=== PATIENT | female | born 1975 | race Caucasian/White ===

== ENCOUNTER 2020-03-05 06:03 | Inpatient (IN) ==
[~2020-03-05 06:03] MED LIST: Buffered Lidocaine 1% SYRIN 1 ml INTRADERM ONE; Famotidine IV 10 MG/ML 2 ml VIAL (20 mg) IV ONE; Lactated Ringers 1000 ml BAG 1,000 ML IV SCH; NS 0.9% IV SCH; TRANEXAMIC ACID IV SCH
[2020-03-05] MEDS ORDERED: Famotidine IV 10 MG/ML 2 ml VIAL (20 mg) ONE (06:46)
[2020-03-05] MEDS ORDERED: ceFOXitin 2 GM IVPREMIX 2 GM/50 ML BAG ONE (06:46)
[2020-03-05] MEDS ORDERED: Propofol 10 MG/ML 20 ML BTL ONE (06:51)
[2020-03-05] MEDS ORDERED: Succinylcholine 200 mg VIAL 20 mg/ml 10 ml VIAL (200 mg) ONE (06:51)
[2020-03-05] MEDS ORDERED: fentaNYL 250 mcg/5 ml 50 MCG/ML 5 ml VIAL (250 MCG) ONE (06:51)
[2020-03-05] MEDS ORDERED: Midazolam 2 mg/2 ml VIAL 1 mg/ml 2 ml VIAL (2 mg) ONE (06:51)
[2020-03-05] MEDS ORDERED: Rocuronium 50 mg VIAL 10 mg/ml 5 ml VIAL (50 mg) ONE (06:51)
[2020-03-05] MEDS ORDERED: Metoclopramide 5 MG/ML VIAL (10 mg) ONE (06:52)
[2020-03-05] MEDS ORDERED: EPHEDrine (Pressors) 50 MG/ML VIAL ONE (06:52)
[2020-03-05] MEDS ORDERED: Sterile Water for Inj 10 ML ONE (06:52)
[2020-03-05] MEDS ORDERED: Ondansetron 4 mg VIAL 2 MG/ML 2 ml VIAL ONE (06:52)
[2020-03-05] MEDS ORDERED: Dexamethasone IV 4 MG/ML VIAL 1 ml VIAL ONE (06:52)
[2020-03-05] MEDS ORDERED: Lidocaine 2% PF 5 ML VIAL ONE (06:55)
[2020-03-05] MEDS ORDERED: Acetaminophen IV 1 GM/100ML 100 ML ONE (08:00)
[2020-03-05] MEDS ORDERED: diPHENhydraMINE IV 50 MG/ML 1 ml VIAL (BENADRYL) IV PRN (08:44)
[2020-03-05] MEDS ORDERED: HYDROmorphone 1 MG/1 ML SYRINGE IV PRN (08:44)
[2020-03-05] MEDS ORDERED: DiMENhydriNATE IV 50 mg/ml 1 ml VIAL IV PUSH PRN (08:44)
[2020-03-05] MEDS ORDERED: Naloxone 0.4 mg VIAL 0.4 mg/ml 1 ml VIAL IV PRN (08:44)
[2020-03-05] MEDS ORDERED: fentaNYL 100 mcg/2 ml 50 MCG/ML VIAL IV PRN (08:44)
[2020-03-05] MEDS ORDERED: Ondansetron 4 mg VIAL 2 MG/ML 2 ml VIAL IV PRN (08:44)
[2020-03-05] MEDS ORDERED: HYDROmorphone 1 MG/1 ML SYRINGE ONE (08:59)
[2020-03-05] MEDS ORDERED: Lidocaine 1% VIAL 10 MG/ML VIAL ONE (09:13)
[2020-03-05] MEDS: Lactated Ringers 1000 ml BAG 1,000 ML IV SCH ×2 (10:59→18:59)
[2020-03-05] MEDS: oxyCODONE/Acetamin 5/325 mg TAB PO PRN (13:34)
[2020-03-05] MEDS ORDERED: Metoclopramide 5 MG/ML VIAL (10 mg) IV PRN (15:12)
[2020-03-06] MEDS: oxyCODONE/Acetamin 5/325 mg TAB PO PRN ×2 (00:16→09:14)
[2020-03-06] MEDS: Lactated Ringers 1000 ml BAG 1,000 ML IV SCH (03:00)
[2020-03-06 05:11] LABS: ABS Lymphocytes 1.5 10^3/ul (1.0-4.8); ABS Monocytes 0.8 10^3/ul (0-0.8); ABS Neutrophils 10.9 10^3/ul (1.5-7.7); Eosinophil % 0.1 %; Hematocrit 32 % (35-47); Hemoglobin 11.3 g/dL (12.0-16.0); Lymphocyte % 11.5 %; Mean Corpuscular HGB Conc 35 g/dL (31-36); Mean Corpuscular Hemoglobin 34 pg (27-31); Mean Corpuscular Volume 97 fL (80-97); Mean Platelet Volume 8.7 fL (7.4-10.4); Platelet Count 231 10^3/uL (150-450); Red Blood Count 3.32 10^6 /uL (3.70-4.87); Red Cell Distribution Width 13 % (10-15); White Blood Count 13.3 10^3/uL (3.5-10.8)
[2020-03-07 12:25] VITALS: BP 112/80
[2020-03-07] MEDS: oxyCODONE/Acetamin 5/325 mg TAB PO PRN (18:07)
[2020-03-08] MEDS ORDERED: Scopolamine PATCH Remove NOTE PATCH OFF ONE (08:45)
== END 2020-03-07 18:32 | disposition home or self-care (01) | DRG 519 ==
LOC: AA 06:03 → SSU 10:57
PROVIDERS: ADMIT Obstetrics & Gynecology; ATTEND Obstetrics & Gynecology